=== PATIENT | male | born 1965 | race Caucasian/White ===

== ENCOUNTER → 2017-01-05 | Outpatient (CLI) | payer SELFPAY ==
[~2017-01-05] MED LIST: ADVAIR 500/501 DISK IH; ADVAIR HFA120 INHAL1 IH; PREDNISONE20 MG PO; PROAIR HFA8.5 GM IH; PROVENTIL,2.5 MG/3 M; PROVENTIL,2.5 MG/3 M IH
== END | disposition home or self-care (01) ==
LOC: RAD 13:54
DX: R19.09 Other intra-abdominal and pelvic swelling, mass and lump (principal)
CPT/HCPCS: 76882

== ENCOUNTER 2017-12-21 01:20 | Emergency (ER) | payer OTHER ==
[~2017-12-21] VITALS: Ht 182.9 cm; Wt 65.5 kg
[2017-12-21 02:43] LABS: BASOPHIL (%) 1.4 % (0-1); BASOPHIL COUNT 0.1 K/uL (0-0.1); EOSINOPHIL (%) 6.5 % (0-5); EOSINOPHIL COUNT 0.5 K/uL (0-0.3); HEMATOCRIT 42.7 % (38.0-50.0); HEMOGLOBIN 14.9 G/DL (12.5-16.6); IMMATURE GRANULOCYTE (%) 0.5 % (0.0-0.7); LYMPHOCYTE (%) 29.6 % (15-42); LYMPHOCYTE COUNT 2.3 K/uL (1.0-2.8); MCH 32.3 PG (29.0-34.0); MCHC 34.9 G/DL (30.0-36.0); MCV 92.6 FL (86-99); MONOCYTE (%) 10.1 % (3-12); MONOCYTE COUNT 0.8 K/uL (0-0.8); NEUTROPHIL (%) 51.9 % (45-76); NEUTROPHIL COUNT 4.1 K/uL (1.8-6.4); PLATELET COUNT 232 K/uL (156-360); RBC DIS.WIDTH-CV 12.4 % (11.8-14.6); RBC DIS.WIDTH-SD 42.1 % (39-53); RED BLOOD COUNT 4.61 M/uL (4.00-5.50); WHITE BLOOD COUNT 7.9 K/uL (4.1-10.2)
[2017-12-21 02:55] LABS: CHLORIDE 106 mEq/L (99-109); POTASSIUM 4.2 mEq/L (3.7-5.4); SODIUM 140 mEq/L (136-147)
[2017-12-21 02:57] LABS: GLUCOSE 92 mg/dL (70-99)
[2017-12-21 02:58] LABS: TOTAL PROTEIN 6.4 g/dL (6.4-8.3)
[2017-12-21 02:59] LABS: TOTAL BILIRUBIN 0.3 mg/dL (0.0-1.0)
[2017-12-21 03:01] LABS: ALKALINE PHOSPHATASE 51 IU/L (3-129); CREATININE 0.8 mg/dL (0.6-1.3); GFR ESTIMATE (CALCULATED) > 59 mL/min/ (58.99-99999)
[2017-12-21 03:02] LABS: UREA NITROGEN (BUN) 20 mg/dL (9-23)
[2017-12-21 03:03] LABS: AST (GOT) 24 IU/L (2-34); DIRECT BILIRUBIN 0.2 mg/dL (0.0-0.3)
[2017-12-21 03:04] LABS: ALT (GPT) 39 IU/L (3-49)
[2017-12-21] MEDS ORDERED: ANUSOL-HC21 GM PR (05:18)
[2017-12-21 05:52] VITALS: BP 124/74
== END 2017-12-21 05:53 | disposition home or self-care (01) ==
LOC: EME 01:20
PROVIDERS: Emergency Medicine
DX: K64.4 Residual hemorrhoidal skin tags (principal); J45.909 Unspecified asthma, uncomplicated
CPT/HCPCS: 74177; 80048; 80076; 85025; 99281; 99285; J3010; J7030

== ENCOUNTER 2018-01-01 08:13 | Day surgery (SDC) | payer OTHER ==
[~2018-01-01] VITALS: Ht 182.9 cm; Wt 63.5 kg
[~2018-01-01 08:13] MED LIST changes: +ANUSOL-HC21 GM PR; +STOOL SOFTENER100 MG PO
[2018-01-01 08:38] VITALS: BP 117/76
[2018-01-01 08:54] LABS: APPEARANCE CLOUDY ((CLEAR)); BILIRUBIN NEGATIVE; BLOOD NEGATIVE; COLOR YELLOW ((YELLOW)); GLUCOSE (STRIP) NEGATIVE; KETONES NEGATIVE; LEUKOCYTES NEGATIVE; NITRITE NEGATIVE; PROTEIN (STRIP) NEGATIVE; SPECIFIC GRAVITY 1.015 (1.000-1.030); UROBILINOGEN 0.2 MG/DL (0.2-1.0)
[2018-01-01 09:10] LABS: RED BLOOD CELLS NONE SEEN /HPF (0-5); WHITE BLOOD CELLS NONE SEEN /HPF (0-5)
[2018-01-01 09:11] LABS: BACTERIA 1+ /HPF; EPITHELIAL CELLS 1+ /HPF; MUCUS 1+ /LPF
[2018-01-01] MEDS ORDERED: PERCOCET 5/31 TABLET PO (11:37)
[2018-01-01 12:08] VITALS: BP 114/74
[2018-01-01 13:08] VITALS: BP 117/81
== END 2018-01-01 13:16 | disposition home or self-care (01) ==
LOC: SDC 08:13
PROVIDERS: Surgery
DX: K60.2 Anal fissure, unspecified (principal); K59.4 Anal spasm; J45.909 Unspecified asthma, uncomplicated; K64.4 Residual hemorrhoidal skin tags; Z77.22 Contact with and (suspected) exposure to environmental tobacco smoke (acute) (chronic)
CPT/HCPCS: 81003; J0131; J0585; J1100; J1170; J2250; J2710; J3010; S0020; S0074

== ENCOUNTER → 2018-04-21 | Emergency (ER) | payer BC ==
[~2018-04-21] VITALS: Ht 182.9 cm; Wt 63.5 kg
[~2018-04-21] MED LIST changes: +CIPRO500 MG PO; +MOTRIN600 MG PO; +PERCOCET 5/31 TABLET PO; +ULTRAM50 MG PO
[2018-04-21 11:24] LABS: BASOPHIL (%) 0.6 % (0-1); BASOPHIL COUNT 0.1 K/uL (0-0.1); EOSINOPHIL (%) 4.7 % (0-5); EOSINOPHIL COUNT 0.6 K/uL (0-0.3); HEMOGLOBIN 14.5 G/DL (12.5-16.6); IMMATURE GRANULOCYTE (%) 0.3 % (0.0-0.7); LYMPHOCYTE (%) 5.2 % (15-42); LYMPHOCYTE COUNT 0.6 K/uL (1.0-2.8); MCH 32.4 PG (29.0-34.0); MCHC 35.4 G/DL (30.0-36.0); MCV 91.7 FL (86-99); MONOCYTE (%) 6.3 % (3-12); MONOCYTE COUNT 0.7 K/uL (0-0.8); NEUTROPHIL (%) 82.9 % (45-76); NEUTROPHIL COUNT 9.8 K/uL (1.8-6.4); PLATELET COUNT 202 K/uL (156-360); RBC DIS.WIDTH-CV 12.3 % (11.8-14.6); RBC DIS.WIDTH-SD 41.7 % (39-53); RED BLOOD COUNT 4.47 M/uL (4.00-5.50); WHITE BLOOD COUNT 11.8 K/uL (4.1-10.2)
[2018-04-21 11:37] LABS: CHLORIDE 106 mEq/L (99-109); POTASSIUM 4.1 mEq/L (3.7-5.4); SODIUM 140 mEq/L (136-147)
[2018-04-21 11:39] LABS: GLUCOSE 111 mg/dL (70-99); TOTAL PROTEIN 6.4 g/dL (6.4-8.3)
[2018-04-21 11:41] LABS: TOTAL BILIRUBIN 0.7 mg/dL (0.0-1.0)
[2018-04-21 11:42] LABS: ALKALINE PHOSPHATASE 78 IU/L (3-129)
[2018-04-21 11:43] LABS: CREATININE 0.8 mg/dL (0.6-1.3); GFR ESTIMATE (CALCULATED) > 59 mL/min/ (58.99-99999)
[2018-04-21 11:44] LABS: AST (GOT) 20 IU/L (2-34); UREA NITROGEN (BUN) 11 mg/dL (9-23)
[2018-04-21 11:45] LABS: ALT (GPT) 20 IU/L (3-49)
[2018-04-21 12:57] LABS: SOURCE URINE
[2018-04-21 13:01] LABS: APPEARANCE SL.HAZY ((CLEAR)); BILIRUBIN NEGATIVE; BLOOD MODERATE; COLOR YELLOW ((YELLOW)); GLUCOSE (STRIP) NEGATIVE; KETONES NEGATIVE; LEUKOCYTES MODERATE; NITRITE POSITIVE; PROTEIN (STRIP) 30; SPECIFIC GRAVITY 1.014 (1.000-1.030); UROBILINOGEN 0.2 MG/DL (0.2-1.0)
[2018-04-21 14:08] LABS: RED BLOOD CELLS RARE /HPF (0-5)
[2018-04-21 14:09] LABS: BACTERIA 3+ /HPF; EPITHELIAL CELLS NONE SEEN /HPF; MUCUS NONE SEEN /LPF; UCUL ADDED? YES
[2018-04-21 14:17] VITALS: BP 102/58
[2018-04-22 12:45] LABS: CHLAMYDIA TRACHOMATIS NEGATIVE; NEISSERIA GONORRHOEAE NEGATIVE
== END | disposition home or self-care (01) ==
LOC: EME 10:52
PROVIDERS: Emergency Medicine
DX: N45.1 Epididymitis (principal); N39.0 Urinary tract infection, site not specified; B96.20 Unspecified Escherichia coli [E. coli] as the cause of diseases classified elsewhere; G43.909 Migraine, unspecified, not intractable, without status migrainosus
CPT/HCPCS: 74176; 76870; 80053; 81003; 85025; 87077; 87086; 87186; 87491; 87591; 93975; 99281; 99284; J0696; J1885